=== PATIENT | female | born 1960 | race Caucasian/White ===

== ENCOUNTER 2020-04-18 07:09 | Day surgery (SDC) | payer OTHER ==
[~2020-04-18 07:09] MED LIST: Lactated Ringers 1,000 ML IV SCH; Sodium Chloride 0.9% 10 ML SDV IV PRN; Sodium Chloride 0.9% 10 ML Syringe FLUSH PRN; Sodium Chloride 0.9% 2.5 ML Syringe FLUSH PRN
[2020-04-18] MEDS ORDERED: Propofol 200 MG/20 ML SDV ONE (07:22)
[2020-04-18] MEDS ORDERED: fentaNYL 100 MCG/2 ML SDV ONE (07:22)
[2020-04-18] MEDS ORDERED: Lidocaine 2% 5 ML SDV ONE (07:22)
[2020-04-18] MEDS ORDERED: Midazolam 1 MG/ML 2 ML SDV ONE (07:22)
--- NOTE | 2020-04-18 08:17 | PCM.PREANE ---
Preanesthetic Assessment - Anesthesia/Transfusion/Family Hx Anesthesia History: Prior Anesthesia Without Reaction Family History of Anesthesia Reaction: No Transfusion History: Prior Transfusion Without Reaction - Review of Systems General: No Symptoms Pulmonary: No Symptoms Cardiovascular: No Symptoms Gastrointestinal: No Symptoms Neurological: No Symptoms - Physical Assessment NPO Status Date: 04/17/20 Vital Signs: Last Vital Signs Temp 97.7 F 04/18/20 07:45 Pulse 57 L 04/18/20 07:45 Resp 16 04/18/20 07:45 BP 112/69 04/18/20 07:45 Pulse Ox 98 04/18/20 07:45 Height: 5 ft 4 in Weight: 69.853 kg ASA Class: 2 Mental Status: Alert & Oriented x3 Airway Class: Mallampati = 3 Dentition: Reports: Normal Dentition ROM/Head Extension: Full Lungs: Clear to Auscultation, Normal Respiratory Effort Cardiovascular: Regular Rate, Regular Rhythm - Allergies Allergies/Adverse Reactions: Allergies Allergy/AdvReac Type Severity Reaction Status Date / Time codeine Allergy Nausea and Verified 04/13/20 12:29 Vomiting - Blood Blood Available: No - Anesthesia Plan Pre-Op Medication Ordered: None - Acknowledgements Anesthesia Type Planned: General Anesthesia (tiva) Pt an Appropriate Candidate for the Planned Anesthesia: Yes Alternatives and Risks of Anesthesia Discussed w Pt/Guardian: Yes Pt/Guardian Understands and Agrees with Anesthesia Plan: Yes Additional Comments: Hx headaches post TBI plan: tiva PreAnesthesia Questionnaire HEENT History: Reports: None Cardiovascular History: Reports: None Respiratory History: Reports: None Gastrointestinal History: Reports: Colon Polyp, GI Bleed Genitourinary History: Reports: None PRODUCTION CONSULTANT History: Reports: Musculoskeletal History: Reports: None Neurological History: Reports: Head Trauma, Migraines, Other (See Below) Other Neuro History: head injury with brain bleed 2 years ago due to falling off a horse Psychiatric History: Reports: None Endocrine/Metabolic History: Reports: None Hematologic History: Reports: Blood Transfusion(s) Immunologic History: Reports: None Oncologic (Cancer) History: Reports: None Dermatologic History: Reports: None - Past Surgical History Head Surgeries/Procedures: Reports: None HEENT Surgical History: Reports: Tonsillectomy Cardiovascular Surgical History: Reports: None Respiratory Surgical History: Reports: None GI Surgical History: Reports: Colonoscopy, EGD Female Surgical History: Reports: Breast Implant, D&C, Other (See Below) Other Female Surgeries/Procedures: uterine ablation Endocrine Surgical History: Reports: None Neurological Surgical History: Reports: None Musculoskeletal Surgical History: Reports: Other (See Below) Other Musculoskeletal Surgeries/Procedures:: shoulder surgery for frozen surgery, ligament repair rt elbow Oncologic Surgical History: Reports: None Dermatological Surgical History: Reports: None - SUBSTANCE USE Smoking Status *Q: Never Smoker Recreational Drug Use History: No - HOME MEDS Home Medications: Home Meds Aspirin/Acetaminophen/Caffeine [Excedrin Migraine Caplet] 1 tab PO ASDIRECTED PRN 04/13/20 [History] Propranolol HCl 20 mg PO BID 04/13/20 [History] SUMAtriptan succinate [Imitrex] 1 tab PO ASDIRECTED PRN 04/13/20 [History] - CURRENT (IN HOUSE) MEDS Current Meds: Current Medications Lactated Ringer's (Ringers, Lactated) 1,000 mls @ 125 mls/hr IV ASDIRECTED KEZIA Last Admin: 04/18/20 08:04 Dose: 125 mls/hr Documented by: Sodium Chloride (Saline Flush) 10 ml FLUSH ASDIRECTED PRN PRN Reason: Keep Vein Open Sodium Chloride (Saline Flush) 2.5 ml FLUSH ASDIRECTED PRN PRN Reason: Keep Vein Open Sodium Chloride (Saline Flush) 10 ml FLUSH ASDIRECTED PRN PRN Reason: Keep Vein Open Sodium Chloride (Saline Flush) 2.5 ml FLUSH ASDIRECTED PRN PRN Reason: Keep Vein Open Sodium Chloride (Normal Saline) 10 ml IV ASDIRECTED PRN PRN Reason: IV Use Discontinued Medications Fentanyl (Sublimaze) Confirm Administered Dose 100 mcg .ROUTE .STK-MED ONE Stop: 04/18/20 07:23 Lidocaine (Xylocaine-Mpf 2%) Confirm Administered Dose 5 ml .ROUTE .STK-MED ONE Stop: 04/18/20 07:23 Midazolam HCl (Versed 1 Mg/Ml) Confirm Administered Dose 2 mg .ROUTE .STK-MED ONE Stop: 04/18/20 07:23 Propofol (Diprivan 20 Ml) Confirm Administered Dose 400 mg .ROUTE .STK-MED ONE Stop: 04/18/20 07:23
--- NOTE | 2020-04-18 09:46 | PCM.OPNOTE ---
- General Post-Op/Procedure Note Date of Surgery/Procedure: 04/18/20 Operative Procedure(s): Diagnostic EGD and colonoscopy Findings: Normal colonoscopy, mild chronic gastritis and duodenitis Pre Op Diagnosis: History of PUD, colon polyps Post-Op Diagnosis: Chronic gastritis and duodenitis Anesthesia Technique: JOSE DAVID Primary Surgeon: Keila Cat Condition: Good
--- NOTE | 2020-04-18 11:42 | PCM.POSTAN ---
POST ANESTHESIA ASSESSMENT - MENTAL STATUS Mental Status: Alert, Oriented - VITAL SIGNS Vital Signs: Last Vital Signs Temp 97.5 F 04/18/20 09:36 Pulse 63 04/18/20 10:00 Resp 16 04/18/20 10:00 BP 113/73 04/18/20 10:00 Pulse Ox 99 04/18/20 10:00 - RESPIRATORY Respiratory Status: Respiratory Rate WNL, Airway Patent, O2 Saturation Stable - CARDIOVASCULAR CV Status: Pulse Rate WNL, Blood Pressure Stable - GASTROINTESTINAL GI Status: No Symptoms - POST OP HYDRATION Hydration Status: Adequate & Stable
--- NOTE | 2020-04-18 11:43 | PCM48HPAN ---
Post Anesthesia Note - EVALUATION WITHIN 48HRS OF ANESTHETIC Vital Signs in Normal Range: Yes Patient Participated in Evaluation: Yes Respiratory Function Stable: Yes Airway Patent: Yes Cardiovascular Function Stable: Yes Hydration Status Stable: Yes Pain Control Satisfactory: Yes Nausea and Vomiting Control Satisfactory: Yes Mental Status Recovered: Yes Vital Signs: Last Vital Signs Temp 97.5 F 04/18/20 09:36 Pulse 63 04/18/20 10:00 Resp 16 04/18/20 10:00 BP 113/73 04/18/20 10:00 Pulse Ox 99 04/18/20 10:00
--- NOTE | 2020-04-18 13:07 | OR ---
SURGEON: KIELA CAT MD DATE OF PROCEDURE: 04/18/2020 PREOPERATIVE DIAGNOSES: History of peptic ulcer disease, history of colon polyps. POSTOPERATIVE DIAGNOSES: Mild chronic gastritis and duodenitis, normal colonoscopy. PROCEDURES PERFORMED: Diagnostic esophagogastroduodenoscopy and colonoscopy. PRIMARY SURGEON: Keila Cat MD ANESTHESIA: MAC. INSTRUMENT USED: Olympus endoscope and colonoscope. EXTENT OF EXAM: To the second portion of duodenum, to the cecum. PREPARATION: Good. LIMITATIONS: None. INDICATIONS FOR EXAMINATION: The patient is a 60-year-old female who has a history of peptic ulcer disease. In the past, she had a bleeding ulcer that required emergent treatment. She has not had any followup scopes since. The patient does have a history of colon polyps and is due for a repeat colonoscopy. The patient and I discussed the procedure; expected perioperative course; and risks including bleeding, infection, or damage to surrounding structures. She verbalized understanding and wishes to proceed. PROCEDURE IN DETAIL: The patient was brought into the endoscopy suite and placed in the left lateral decubitus position. A time-out was completed verifying the patient's name, age, date of , allergies, and procedure to be performed. Monitored anesthesia care was induced and a bite block was placed in the patient's mouth. Continuous oxygen was provided via nasal cannula throughout the procedure. After adequate sedation was achieved, a well-lubricated endoscope was placed in the patient's mouth and advanced under direct visualization to the second portion of duodenum. The second portion of duodenum appeared normal and a photograph was taken. The scope was then fully withdrawn while examining the color, texture, anatomy, and integrity of the mucosa of the upper GI tract. In the duodenal bulb, the patient had some mild chronic inflammation. A biopsy of the duodenum was taken using cold biopsy forceps. The scope was brought into the stomach and a photograph was taken of the pylorus and GE junction. Both appeared anatomically normal. Biopsies were taken of the gastric antrum, body, and fundus and sent for histologic review and H. pylori testing. The antrum of the stomach showed some signs of mild chronic inflammation. The scope was brought into the distal esophagus. A photograph was taken of the Z-line. This appeared normal. The remainder of the esophagus appeared free of pathology. The scope was removed and this portion of procedure terminated. A digital rectal exam was performed. This exam was within normal limits. A well-lubricated colonoscope was inserted in the rectum and advanced under direct visualization to the level of the cecum. The cecum was identified by both visual and anatomic landmarks. A photograph was taken of the cecal cap; however, I was unable to retroflex the scope within the cecum due to looping of the scope more proximally. The scope was then fully withdrawn while examining the color, texture, anatomy, and integrity of the mucosa from the cecum to the anal canal. The patient was found to have normal- appearing colonic mucosa and there was no evidence of colon polyps. The scope was brought into the rectum and retroflexed to allow visualization of the anal canal opening. This appeared normal and a photograph was taken. The scope was straightened out and fully withdrawn. The cecum to anus time was 10 minutes. The patient tolerated the procedure well and was transferred to the PACU in stable condition. ENDOSCOPIC DIAGNOSIS: Mild chronic gastritis and duodenitis. RECOMMENDATIONS: Follow up in clinic in 2 weeks. SAIDA BROWNING /[id number]
== END 2020-04-18 10:35 | disposition home or self-care (01) ==
LOC: MW.SDS 07:09
PROVIDERS: ATTEND Surgery
DX: K29.50 Unspecified chronic gastritis without bleeding (principal); K29.80 Duodenitis without bleeding; I10 Essential (primary) hypertension; Z86.010 Personal history of colon polyps; Z87.11 Personal history of peptic ulcer disease; Z98.890 Other specified postprocedural states; Z88.5 Allergy status to narcotic agent
CPT/HCPCS: 43239; 45378; J2001; J2250; J2704; J3010; J7120; 00813; 88305; 88312